=== PATIENT | male | born 1960 | race African-American/Black ===

== ENCOUNTER 2020-11-20 09:58 | Emergency (ER) | payer SELFPAY ==
[~2020-11-20] VITALS: Ht 185.4 cm; Wt 90.0 kg
[2020-11-20 10:00] VITALS: BP 124/85
[2020-11-20] MEDS ORDERED: ACETAMINOPHEN 325MG TABLET PO ONE (10:30)
[2020-11-20] MEDS ORDERED: HYDR-4001 MT (12:04)
[2020-11-20] MEDS ORDERED: IBUP-2029 MT (12:05)
== END 2020-11-20 12:22 | disposition home or self-care (01) ==
LOC: ER 09:58
DX: S42.031A Displaced fracture of lateral end of right clavicle, initial encounter for closed fracture (principal); S09.8XXA Other specified injuries of head, initial encounter; S16.1XXA Strain of muscle, fascia and tendon at neck level, initial encounter; M25.562 Pain in left knee; V43.52XA Car driver injured in collision with other type car in traffic accident, initial encounter; Y93.89 Activity, other specified; Y92.410 Unspecified street and highway as the place of occurrence of the external cause
CPT/HCPCS: 73030; 73562; 99284; A4565